=== PATIENT | male | born 1950 | race Caucasian/White ===

== ENCOUNTER 2019-12-01 20:08 | Inpatient (IN) | payer BC, OTHER ==
[~2019-12-01] VITALS: Ht 170.2 cm; Wt 83.0 kg
[2019-12-01] MEDS ORDERED: IPRATROPIUM 0.5MG/ALBUTEROL 2.5MG INH SOL UD 3ML (DUONEB)(J7620) NEB PRN ×2 (20:45→22:45)
[2019-12-01 21:26] LABS: VENOUS BASE EXCESS -2.5 (-2.0-2.0); VENOUS O2 SATURATION 88.3 % (60.0-80.0); VENOUS PARTIAL PRESSURE CO2 37.1 mmHg (38.0-50.0); VENOUS PARTIAL PRESSURE O2 53.4 mmHg (30.0-50.0); VENOUS STANDARD HCO3 22.2 MEQ/L; VENOUS TOTAL CO2 23.1 MEQ/L (24.0-28.0)
[2019-12-01 21:28] LABS: BASO # 0.1 10^3/uL (0.0-0.2); BASO % 0.6 % (0.0-1.0); EOS # 0.1 10^3/uL (0.0-0.5); EOS % 0.7 % (0.0-3.0); HEMATOCRIT 46.1 % (42.0-52.0); HEMOGLOBIN 15.1 g/dl (13.5-17.5); LYMPH % 23.3 % (24.0-44.0); MEAN CORPUSCULAR HEMOGLOBIN 28.5 pg (27.0-33.0); MEAN CORPUSCULAR HGB CONC 32.8 g/dl (32.0-36.5); MONO # 0.5 10^3/uL (0.0-0.8); MONO % 5.3 % (0.0-5.0); NEUTROPHILS # 6.1 10^3/uL (1.5-8.5); NEUTROPHILS % 69.8 % (36.0-66.0); PLATELET COUNT, AUTOMATED 268 10^3/uL (150-450); WHITE BLOOD COUNT 8.7 10^3/uL (4.0-10.0)
[2019-12-01 21:53] LABS: ALBUMIN 4.1 GM/DL (3.2-5.2); ALT/SGPT 22 U/L (12-78); BILIRUBIN,DIRECT 0.3 MG/DL (0.0-0.2); BILIRUBIN,TOTAL 0.9 MG/DL (0.2-1.0); BLOOD UREA NITROGEN 12 MG/DL (7-18); CALCIUM LEVEL 8.7 MG/DL (8.8-10.2); CARBON DIOXIDE LEVEL 22 MEQ/L (21-32); CHLORIDE LEVEL 109 MEQ/L (98-107); CK-MB VALUE MASS < 1.0 NG/ML (<3.6); CPK CREATINE PHOSPHOKINASE 72 U/L (39-308); CREATININE FOR GFR 0.94 MG/DL (0.70-1.30); GLOMERULAR FILTRATION RATE > 60.0 (>42); GLUCOSE, FASTING 106 MG/DL (70-100); MB/CK RELATIVE INDEX 1.39 (< OR =4); NT-PRO BNP 2193 PG/ML (<125); POTASSIUM SERUM 3.5 MEQ/L (3.5-5.1); SODIUM LEVEL 142 MEQ/L (136-145); THYROID STIMULATING HORMONE 0.407 uIU/ML (0.358-3.740); TOTAL PROTEIN 7.2 GM/DL (6.4-8.2); TROPONIN I < 0.02 NG/ML (< 0.10)
[2019-12-01 21:55] LABS: INFLUENZA A AMPLIFICATION NEGATIVE (NEGATIVE); INFLUENZA B AMPLIFICATION NEGATIVE (NEGATIVE)
[2019-12-01] MEDS ORDERED: FUROSEMIDE 40 MG/4 ML VIAL (J1940) IV ONE (22:30)
[2019-12-01] MEDS ORDERED: ADV250INH INH (22:37)
[2019-12-01] MEDS ORDERED: METO1TAB7 PO (22:37)
[2019-12-01] MEDS ORDERED: TUMSCHW16 PO (22:37)
[2019-12-01] MEDS ORDERED: PROAAER10 INH (22:37)
[2019-12-01] MEDS ORDERED: MUCI1CAP PO (22:37)
[2019-12-01] MEDS ORDERED: ATOR1TAB21 PO (22:37)
[2019-12-01] MEDS ORDERED: LISI40TA PO (22:37)
[2019-12-01] MEDS ORDERED: SPIR12.9 INH (22:37)
[2019-12-01] MEDS ORDERED: DALI1TAB2 PO (22:37)
[2019-12-01] MEDS ORDERED: [UNRECOGNIZED DRUG - CODE] MT (22:38)
[2019-12-01] MEDS ORDERED: TIZA4TAB4 PO (22:38)
[2019-12-01] MEDS ORDERED: MOM 30ML SUSPENSION UDC PO PRN (22:45)
[2019-12-01] MEDS ORDERED: ACETAMINOPHEN TAB 650MG DOSE (2X325MG) PO PRN (22:45)
[2019-12-01] MEDS ORDERED: MAALOX 30 ML SUSP *UDC PO PRN (22:45)
--- NOTE | 2019-12-01 22:46 | HPEPDOC ---
[facility] Medical History & Physical Date of Admission Dec 01, 2019 Date of Service: Dec 01, 2019 Other Provider Mike Dsouza DO History and Physical TIME OF SERVICE: 11:15 PM CHIEF COMPLAINT:Shortness of breath HISTORY OF PRESENT ILLNESS: This is a 69-year-old male who presents with complaints of shortness of breath that began last night associated with a cough productive of green sputum, runny nose, fevers, chills, and nausea without vomiting. His daughter and son-in-law were recently diagnosed with pneumonia. EMS initially put him on 15 L prior nonrebreather mask, and gave him 1 neb because he was wheezing, and dexamethasone. When he arrived in the ER, his O2 sats improved to 98% on room air. Because of findings of congestion on the chest x-ray and elevated BNP, he was given 1 dose of Lasix. EKG showed new onset A. fib REVIEW OF SYSTEMS: 12 point review of systems negative except as listed in HPI PAST MEDICAL/ SURGICAL HISTORY: COPD CAD Chronic Hypertension He denies having a history of CVA or diabetes or PVD SOCIAL HISTORY: He quit smoking ALLERGIES: Please see below. HOME MEDICATIONS: Please see below. PHYSICAL EXAMINATION: VITAL SIGNS: Please see below. GEN: well nourished / well developed/ NAD HEENT:NCAT / lips are not cyanotic / he does not have pursed lip breathing / trachea midline / maximal laryngeal height is <4cm / mucus membranes moist and pink CVS: Heart rate is irregularly irregular / he does not have lower extremity edema LUNGS: He is to speak full sentences without stopping to take a breath /he is not accessory muscles /there are decreased breath sounds bilaterally ABDOMEN: there are no masses or lesions / bowel sounds are present / the abdomen is tympanic on percussion, soft & not tender with palpation NEURO: CN 2-12 are grossly intact / speech is not dysarthric PSYCH: alert and oriented to person place and time/ able to understand and follow all commands LABORATORY DATA: See below. IMAGING: Chest x-ray " Impression: Cannot exclude very subtle early peribronchial infiltrates." MICROBIOLOGY: Please see below. ASSESSMENT: Mr. Martinez is a 69-year-old with a past history of COPD, HTN and CAD, that is admitted for management of new onset atrial fibrillation and acute COPD. PLAN: 1. New onset atrial fibrillation Predisposing factors include COPD. His EKG showed A. fib w RVR History of pulmonary, TSH, potassium, and d-dimer were unrevealing but the BNP was elevated Based on the current info we have his CHADSVASC score is approx 3 Plan: admit to PCU / telemetry /since we are not sure about his EF, we will give 1 dose of digoxin for rate control / pending Echo and to r/o valvulopathy will give Lovenox 1 mg/kg twice a day for AC / f/u mag and trend trops / the patient is requesting referral to stock replenisher in [facility] because he doesn't want to drive 1 hour to see his stock replenisher in [place], this can be done on an out pt basis 2. Acute COPD Likely triggered by viral infection versus early pneumonia His chest x-ray and ABG were reviewed Plan: supplemental O2 / continuous pulse oximetry / aspiration precautions / Dunebs Q6H, levalbuterol Q4HP, Prednisone + PPI / will give Levofloxacin because the patient has a change in sputum color / continue roflumilast / refer to [facility] for PFTs and Pulmonary Rehab when ready for d/c 3. SIRS Likely reactive due to viral infection. SIRS criteria include tachycardia and tachypnea He does not look toxic, and does not have a fever, leukocytosis therefore it's unlikely that he really has sepsis Despite the fact that daughter and son-in-law have pneumonia, and the chest x- ray report states that the cannot rule out early infiltrates. Plan: Monitor vitals / he is on levofloxacin for acute COPD with a change in sputum color 4. CAD Plan: Atorvastatin 4. Chronic hypertension Plan: lisinopril DVT PROPHYLAXIS: Not needed because he is on anticoagulation for new-onset A. fib DISPOSITION: Likely home after more than 2 night's stay PFS consult has been placed for assistance obtaining a home RN and homemaker ( the patient reports that he has trouble remembering to take his medications) Vital Signs Vital Signs Date Time Temp Pulse Resp B/P (MAP) Pulse Ox O2 Delivery O2 Flow Rate FiO2 12/01/19 21:23 119 96 12/01/19 21:15 21 206/82 (123) 12/01/19 20:30 98.0 Room Air Laboratory Data Labs 24H Laboratory Tests 2 12/01/19 21:08: Immature Granulocyte % (Auto) 0.3, Neutrophils (%) (Auto) 69.8H, Lymphocytes (%) (Auto) 23.3L, Monocytes (%) (Auto) 5.3H, Eosinophils (%) (Auto) 0.7, Basophils (%) (Auto) 0.6, Neutrophils # (Auto) 6.1, Lymphocytes # (Auto) 2.0, Monocytes # (Auto) 0.5, Eosinophils # (Auto) 0.1, Basophils # (Auto) 0.1, Nucleated Red Blood Cells % (auto) 0.0, D-Dimer, Quantitative 451.13, Blood Gas Bicarbonate Standard 22.2, Venous Blood pH 7.390, Venous Blood Partial Pressure CO2 37.1L, Venous Blood Partial Pressure O2 53.4H, Venous Blood Total Carbon Dioxide 23.1L, Venous Blood HCO3 22.0L, Venous Blood Oxygen Saturation 88.3H, Venous Blood Base Excess -2.5L, Anion Gap 11, Glomerular Filtration Rate > 60.0, Calcium Level 8.7L, Total Bilirubin 0.9, Direct Bilirubin 0.3H, Aspartate Amino Transf (AST/SGOT) 11, Alanine Aminotransferase (ALT/SGPT) 22, Alkaline Phosphatase 132H, Total Creatine Kinase 72, Creatine Kinase MB < 1.0, Creatine Kinase MB Relative Index 1.39, Troponin I < 0.02, HM-Ywx-[id number]-Type Natriuretic Peptide 2193H, Total Protein 7.2, Albumin 4.1, Albumin/Globulin Ratio 1.32, Thyroid Stimulating Hormone (TSH) 0.407, Influenza Type A (RT-PCR) NEGATIVE, Influenza Type B (RT- PCR) NEGATIVE CBC/BMP Laboratory Tests 12/01/19 21:08 Microbiology Microbiology 12/01/19 Blood Culture, Received Pending 12/01/19 Blood Culture, Received Pending Home Medications Scheduled Atorvastatin Calcium (Atorvastatin Calcium) 20 Mg Tablet, 20 MG PO DAILY Lisinopril (Lisinopril) 40 Mg Tablet, 40 MG PO DAILY Metoprolol Succinate (Metoprolol Succinate) 50 Mg Tab.er.24h, 50 MG PO DAILY Roflumilast (Daliresp) 500 Mcg Tablet, 500 MCG PO DAILY Salmeterol/Fluticasone (Advair 250-50 Diskus) 1 Each Blst.w.dev, 1 PUFF INH BID Tiotropium [place] (Spiriva Respimat) 4 Gm Mist.inhal, 2 INHALATION INH DAILY Scheduled PRN Albuterol Sulfate (Proair Hfa) 8.5 Gm Hfa.aer.ad, 2 PUFF INH Q4H PRN for SH ORTNESS OF BREATH Calcium Carbonate (Tums Smoothies) 300 Mg Tab.chew, 750 MG PO Q4H PRN for UPSET STOMACH Dyclonine HCl (Sucrets Sore Throat) 2 Mg Lozenge, 2 MG MT ASDIRECTED PRN for SORE THROAT Phenylephrine/Dm/Acetaminop/GG (Mucinex Fast-Max Mrkx-Dmx-Zgvo) 1 Each Capsule, 2 CAP PO Q4H PRN for COLD/FLU/SORE THROAT Tizanidine HCl (Tizanidine HCl) 4 Mg Tablet, 4 MG PO TID PRN for MUSCLE SPASMS Allergies Coded Allergies: No Known Drug Allergies (Verified Allergy, Unknown, 12/01/19) A-FIB/CHADSVASC A-FIB History Current/History of A-Fib/PAF?: Yes Current PO Anticoag Therapy: No Age/Risk Factor Scoring CHADSVASC: CHADSVASC Response (Comments) Value Age Risk Factor Age 65-74 years old 1 Gender Risk Factor Male 0 Hx of CHF No 0 Hx of HTN Yes 1 Hx of Stroke/TIA/or VTE No 0 Hx of Diabetes No 0 Hx of Vascular Disease Yes 1 Total 3 Treatment Treatment ordered: Other (lovenox) Other anticoagulant ordered: FREDRICK Ulloa MD Dec 01, 2019 22:46
[2019-12-01] MEDS ORDERED: DIGOXIN INJ 0.5 MG/2 ML AMP (J1160) IV ONE (23:45)
[2019-12-01] MEDS ORDERED: PILL CUTTER 1 EACH XX PRN (23:45)
[2019-12-01] MEDS ORDERED: tiZANidine 4 MG TAB PO PRN (23:45)
[2019-12-01] MEDS ORDERED: CALCIUM CARBONATE 500 MG CHEW U/D PO PRN (23:45)
[2019-12-02 00:56] VITALS: BP 141/97
--- NOTE | 2019-12-02 01:52 | REP ---
Clinical: Cough and dyspnea . Comparison: None . Technique: PA and lateral. Findings: The mediastinum and cardiac silhouette are normal. Very subtle perihilar opacities may reflect early ground-glass alveolar infiltrates and should be correlated with auscultation and physical examination. No discrete focal consolidation. No effusion. No pneumothorax. Skeletal structures are intact. Impression: Cannot exclude very subtle early peribronchial infiltrates. Electronically Signed by Angel Inman MD 12/02/2019 01:43 A
[2019-12-02 02:28] LABS: TROPONIN I < 0.02 NG/ML (< 0.10)
[2019-12-02 03:39] LABS: MAGNESIUM LEVEL 1.8 MG/DL (1.8-2.4)
[2019-12-02 04:00] VITALS: BP 170/90
[2019-12-02] MEDS ORDERED: ENOXAPARIN 80 MG/0.8 ML SYRINGE (J1650) SC SCH (04:00)
[2019-12-02 05:37] LABS: HEMATOCRIT 44.8 % (42.0-52.0); HEMOGLOBIN 15.7 g/dl (13.5-17.5); MEAN CORPUSCULAR HEMOGLOBIN 29.6 pg (27.0-33.0); MEAN CORPUSCULAR VOLUME 84.4 fl (80.0-96.0); PLATELET COUNT, AUTOMATED 327 10^3/uL (150-450); RED BLOOD COUNT 5.31 10^6/uL (4.30-6.10); WHITE BLOOD COUNT 7.2 10^3/uL (4.0-10.0)
[2019-12-02 05:59] LABS: BLOOD UREA NITROGEN 14 MG/DL (7-18); CALCIUM LEVEL 9.1 MG/DL (8.8-10.2); CARBON DIOXIDE LEVEL 22 MEQ/L (21-32); CHLORIDE LEVEL 105 MEQ/L (98-107); CREATININE FOR GFR 1.11 MG/DL (0.70-1.30); GLOMERULAR FILTRATION RATE > 60.0 (>42); GLUCOSE, FASTING 167 MG/DL (70-100); POTASSIUM SERUM 3.4 MEQ/L (3.5-5.1); SODIUM LEVEL 139 MEQ/L (136-145); TROPONIN I < 0.02 NG/ML (< 0.10)
[2019-12-02] MEDS ORDERED: LevoFLOXacin 750 MG TABLET PO SCH (06:00)
[2019-12-02] MEDS ORDERED: METOPROLOL SUCC *XL* 25MG TAB (TopROL *XL*) PO ONE (07:00)
--- NOTE | 2019-12-02 07:30 | ECGEPIP ---
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
[2019-12-02 07:43] VITALS: BP 155/87
[2019-12-02] MEDS: ATORVASTATIN 20 MG TAB PO SCH (08:06)
[2019-12-02] MEDS: DOCUSATE SODIUM 100 MG CAP PO SCH ×2 (08:06→20:12)
[2019-12-02] MEDS: PANTOPRAZOLE 40MG TAB (PROTONIX) PO SCH (08:06)
[2019-12-02] MEDS: lisinopriL 40 MG TAB PO SCH (08:08)
[2019-12-02] MEDS ORDERED: POTASSIUM CHLORIDE 10 MEQ SR TABLET PO ONE (08:30)
[2019-12-02] MEDS ORDERED: FUROSEMIDE 20 MG TAB PO SCH (09:00)
[2019-12-02] MEDS: ASPIRIN 81 MG ENTERIC TAB PO SCH (09:00)
[2019-12-02] MEDS ORDERED: ENOXAPARIN 40 MG/0.4 ML SYRINGE (J1650) SC SCH (09:00)
[2019-12-02] MEDS ORDERED: METOPROLOL SUCC (TopROL XL) 50MG **XL** TAB PO SCH (09:00)
[2019-12-02] MEDS ORDERED: predniSONE 20 MG TAB PO SCH (09:00)
[2019-12-02] MEDS ORDERED: ALBUTEROL 90 MCG/ACT 8GM HFA INHALER INH PRN (09:15)
[2019-12-02] MEDS: cefTRIAXone SOD 2 GM in D5W MINI-BAG PLUS 50 ML IV SCH (10:45)
[2019-12-02] MEDS: NS 1,000 ML IV SCH ×3 (10:45→22:53)
[2019-12-02] MEDS ORDERED: AZITHROMYCIN INJ 500 MG, VIAL MATE ADAPTER 1 EACH in D5W 250 ML IV SCH (11:00)
[2019-12-02] MEDS: IPRATROPIUM 0.5MG/ALBUTEROL 2.5MG INH SOL UD 3ML (DUONEB)(J7620) INH SCH ×4 (11:05→23:45)
--- NOTE | 2019-12-02 11:41 | IPNPDOC ---
Text Note Date of Service The patient was seen on 12/02/19. NOTE Subjective: Patient stated that he has a weakness, cough and greenish sputum. Also patient stated that he had chills overnight. Patient denied any chest pain, palpitations, dysuria or diarrhea Objective: VITAL SIGNS: Please see below. GENERAL APPEARANCE:NAD HEENT: Normocephalic, atraumatic. Mucous members moist and pink CARDIOVASCULAR: Irregularly irregular rhythm, heart rate around 126 LUNGS: Bilateral wheezes with coarse lung sounds over sternal area ABDOMEN: Abdomen is soft and nontender. MUSCULOSKELETAL: Range of motion is intact in all 4 extremities NEUROLOGICAL: Cranial nerves II-12 are grossly intact. Speech is not dysarthric Patient 69 years old male with past mental history of COPD, hypertension, coronary artery diseases presented hospital with increased shortness of breath and new onset of atrial fibrillation COPD exacerbation Patient was around sick people, his daughter was diagnosed with pneumonia Patient has been having increased cough with greenish sputum production for past 3 days Patient does not have leukocytosis, chest x-ray does not reveal any acute infiltrate Azithromycin IV, ceftriaxone IV Sputum culture Incentive spirometry Solu-Medrol IV for now Inhalers Respiratory panel New-onset of atrial fibrillation Patient has not been diagnosed with A. fib before Most likely secondary to respiratory distress secondary to COPD exacerbation Patient looks dry on the exam, flat JVD Most likely increased BNP secondary to atrial fibrillation, not CHF exacerbation I will give IV fluid patient and stop diuresis Coronary artery diseases Patient was not on the aspirin for unknown reason Aspirin 81 Continue statin Continue beta maxi Hypertension Continue lisinopril Electrolyte imbalance Potassium replaced VS,Fishbone, I+O VS, Fishbone, I+O Laboratory Tests 12/01/19 21:08 12/02/19 05:08 Vital Signs Date Time Temp Pulse Resp B/P (MAP) Pulse Ox O2 Delivery O2 Flow Rate FiO2 12/02/19 08:08 128 155/87 12/02/19 07:43 98.2 20 98 12/02/19 04:00 Room Air I&O- Last 24 Hours up to 6 AM 12/02/19 05:59 Intake Total 0 ml Output Total 300 ml Balance -300 ml TERESE PEARSON DO Dec 02, 2019 11:41
[2019-12-02] MEDS: methylPREDNISolone INJ 125 MG/2 ML VIAL (J2930) IV SCH ×2 (11:47→20:12)
[2019-12-02 12:00] VITALS: BP 147/94
[2019-12-02] MEDS: METOPROLOL 5 MG/5 ML VIAL IV PRN ×2 (13:34→16:17)
[2019-12-02 16:00] VITALS: BP 133/56
[2019-12-02] MEDS: RIVAROXABAN 15 MG TAB (XARELTO) PO SCH (17:50)
[2019-12-02 20:00] VITALS: BP 115/72
--- NOTE | 2019-12-02 21:22 | ECHO ---
DATE OF PROCEDURE: 12/02/2019 Date of : 1950 Age: 69 Gender: Male Height: 67 inches Weight: 176 pounds Body surface area: 1.92 meters squared Inpatient: Progressive care unit (PCU), room 3220. REFERRING PHYSICIAN: Dr. Tory Waddell INDICATION: Dyspnea. MEASUREMENTS: 2D Measurements: RV: 4.1 cm LV: 5.5 cm Septum: 1.2 cm Posterior wall: 1.2 cm Aortic root: 3.8 cm LA: 4.0 cm LVEF: 65% Doppler Measurements: AV: 1.1 meters per second LVOT: 0.8 meters per second LVOT diameter: 2.3 cm MV-E: 69 Early mitral deceleration time: 134 milliseconds E prime medial: 6, E prime lateral: 7.3 Average E/E prime ratio: 10.4/PCWP: 14.8 mmHg PV: 0.75 meters per second Pulmonary artery acceleration time: 100 milliseconds RVSP: 37 mmHg IVC: 1.7 cm COMMENTS: Underlying atrial fibrillation with slightly rapid ventricular response. Occasional premature ventricular contraction (PVC). Somewhat technically challenging study in light of the patient's body habitus but diagnostically useful information was still obtained. M-mode and two-dimensional echocardiography was performed with pulsed, continuous wave, color flow and tissue Doppler studies. Borderline left ventricle hypertrophy with normal wall motion. Borderline left atrial enlargement with current estimated mean left atrial pressure slightly elevated. Borderline right heart chamber enlargement with normal right ventricular free wall motion and Doppler evidence of mild pulmonary hypertension. Normal inferior vena cava (IVC) size and collapse against an elevated central venous pressure. Three equal size aortic cusps with marginal cusp thickening but adequate cusp separation and no insufficiency. Aortic root dimension upper limits of normal. Normal appearing mitral valvular apparatus and leaflet excursion with no posterior systolic buckling. Only very mild insufficiency (physiologic). Normal appearing tricuspid valve with mild insufficiency. No apparent intracardiac mass or pericardial effusion. MTDD
[2019-12-03] VITALS (7 sets, daily range): BP systolic 121–160; BP diastolic 60–78
[2019-12-03] MEDS: methylPREDNISolone INJ 125 MG/2 ML VIAL (J2930) IV SCH (03:57)
[2019-12-03] MEDS: IPRATROPIUM 0.5MG/ALBUTEROL 2.5MG INH SOL UD 3ML (DUONEB)(J7620) INH SCH ×5 (04:15→19:45)
[2019-12-03 05:42] LABS: HEMATOCRIT 43.9 % (42.0-52.0); HEMOGLOBIN 14.4 g/dl (13.5-17.5); MEAN CORPUSCULAR HEMOGLOBIN 28.9 pg (27.0-33.0); MEAN CORPUSCULAR HGB CONC 32.8 g/dl (32.0-36.5); MEAN CORPUSCULAR VOLUME 88.2 fl (80.0-96.0); PLATELET COUNT, AUTOMATED 315 10^3/uL (150-450); RED BLOOD COUNT 4.98 10^6/uL (4.30-6.10); WHITE BLOOD COUNT 16.7 10^3/uL (4.0-10.0)
[2019-12-03 06:03] LABS: CALCIUM LEVEL 8.9 MG/DL (8.8-10.2); CREATININE FOR GFR 1.41 MG/DL (0.70-1.30); GLOMERULAR FILTRATION RATE 52.9 (>42); POTASSIUM SERUM 3.5 MEQ/L (3.5-5.1)
[2019-12-03] MEDS ORDERED: POTASSIUM CHLORIDE 10 MEQ SR TABLET PO ONE (09:00)
[2019-12-03] MEDS ORDERED: METOPROLOL SUCC *XL* 25MG TAB (TopROL *XL*) PO SCH (09:00)
[2019-12-03] MEDS: DOCUSATE SODIUM 100 MG CAP PO SCH ×2 (09:33→20:17)
[2019-12-03] MEDS: METOPROLOL SUCC (TopROL XL) 100MG *XL* TAB PO SCH (09:34)
[2019-12-03] MEDS: lisinopriL 40 MG TAB PO SCH (09:34)
[2019-12-03] MEDS: ATORVASTATIN 20 MG TAB PO SCH (09:34)
[2019-12-03] MEDS: ASPIRIN 81 MG ENTERIC TAB PO SCH (09:34)
[2019-12-03] MEDS: PANTOPRAZOLE 40MG TAB (PROTONIX) PO SCH (09:34)
[2019-12-03] MEDS: cefTRIAXone SOD 2 GM in D5W MINI-BAG PLUS 50 ML IV SCH (09:35)
--- NOTE | 2019-12-03 10:20 | IPNPDOC ---
Text Note Date of Service The patient was seen on 12/03/19. NOTE Subjective: Patient stated that he feels better today. His breathing markedly improved after inhalers. Also patient stated that he had chills overnight. Patient denied any chest pain, palpitations, dysuria or diarrhea Objective: VITAL SIGNS: Please see below. GENERAL APPEARANCE:NAD HEENT: Normocephalic, atraumatic. Mucous members moist and pink CARDIOVASCULAR: Irregularly irregular rhythm, heart rate around 110 LUNGS: Mild bilateral scattered lung sounds ABDOMEN: Abdomen is soft and nontender. MUSCULOSKELETAL: Range of motion is intact in all 4 extremities NEUROLOGICAL: Cranial nerves II-12 are grossly intact. Speech is not dysarthric MEASUREMENTS: 2D Measurements: RV: 4.1 cm LV: 5.5 cm Septum: 1.2 cm Posterior wall: 1.2 cm Aortic root: 3.8 cm LA: 4.0 cm LVEF: 65% Doppler Measurements: AV: 1.1 meters per second LVOT: 0.8 meters per second LVOT diameter: 2.3 cm MV-E: 69 Early mitral deceleration time: 134 milliseconds E prime medial: 6, E prime lateral: 7.3 Average E/E prime ratio: 10.4/PCWP: 14.8 mmHg PV: 0.75 meters per second Pulmonary artery acceleration time: 100 milliseconds RVSP: 37 mmHg IVC: 1.7 cm COMMENTS: Underlying atrial fibrillation with slightly rapid ventricular response. Occasional premature ventricular contraction (PVC). Somewhat technically challenging study in light of the patient's body habitus but diagnostically useful information was still obtained. M-mode and two-dimensional echocardiography was performed with pulsed, continuous wave, color flow and tissue Doppler studies. Borderline left ventricle hypertrophy with normal wall motion. Borderline left atrial enlargement with current estimated mean left atrial pressure slightly elevated. Borderline right heart chamber enlargement with normal right ventricular free wall motion and Doppler evidence of mild pulmonary hypertension. Normal inferior vena cava (IVC) size and collapse against an elevated central venous pressure. Three equal size aortic cusps with marginal cusp thickening but adequate cusp separation and no insufficiency. Aortic root dimension upper limits of normal. Normal appearing mitral valvular apparatus and leaflet excursion with no posterior systolic buckling. Only very mild insufficiency (physiologic). Normal appearing tricuspid valve with mild insufficiency. No apparent intracardiac mass or pericardial effusion. Patient 69 years old male with past mental history of COPD, hypertension, coronary artery diseases presented hospital with increased shortness of breath and new onset of atrial fibrillation. Patient was diagnosed with COPD exacerbation secondary to viral infection. Patient was tested positive for rhinovirus/enteroviral infection, there is possibility for bacterial co- infection. Patient received treatment with inhalers, steroids by mouth, antibiotics. COPD exacerbation Patient was around sick people, his daughter was diagnosed with pneumonia Patient has been having increased cough with greenish sputum production for past 3 days chest x-ray does not reveal any acute infiltrate Patient was tested positive for rhinovirus/enteroviral infection Most likely patient developed COPD exacerbation secondary to viral infection, there is possibility for bacterial co- infection I changed IV antibiotics to Levofloxacin by mouth Incentive spirometry I changed Solu-Medrol IV to prednisone with taper Inhalers New-onset of atrial fibrillation Patient has not been diagnosed with A. fib before Most likely secondary to respiratory distress secondary to COPD exacerbation Patient looks dry on the exam, flat JVD Most likely increased BNP secondary to atrial fibrillation, not CHF exacerbation Echo showed ejection fraction of 65% with normal wall motion Coronary artery diseases Patient was not on the aspirin for unknown reason Aspirin 81 Continue statin Continue beta maxi Hypertension Continue lisinopril Electrolyte imbalance Potassium replaced VS,Fishbone, I+O VS, Fishbone, I+O Laboratory Tests 12/03/19 05:05 Vital Signs Date Time Temp Pulse Resp B/P (MAP) Pulse Ox O2 Delivery O2 Flow Rate FiO2 12/03/19 09:34 122 144/63 12/03/19 08:05 98.4 20 97 Room Air I&O- Last 24 Hours up to 6 AM 12/03/19 06:00 Intake Total 1280 ml Output Total 1725 ml Balance -445 ml TERESE PEARSON DO Dec 03, 2019 10:20
[2019-12-03] MEDS: METOPROLOL 5 MG/5 ML VIAL IV PRN (10:24)
[2019-12-03] MEDS ORDERED: LORazepam 1 MG TAB PO STA (10:32)
[2019-12-03] MEDS: LevoFLOXacin 500 MG TABLET PO SCH (10:38)
[2019-12-03] MEDS: predniSONE 20 MG TAB PO SCH (10:39)
[2019-12-03] MEDS ORDERED: SLF 3 ML SYR IV PRN (11:30)
--- NOTE | 2019-12-03 13:38 | IPN ---
DATE: 12/03/2019 REFERRING PHYSICIAN: Dr. Baez INDICATION: Atrial fibrillation with rapid ventricular response. HISTORY OF PRESENT ILLNESS: Mr. Martinez is previously unknown to me. He is a 69-year-old man who presented to [facility] yesterday with shortness of breath. It was felt that it was due to respiratory infection, and he has been treated with steroids and antibiotics and bronchodilators. He was also found to be in atrial fibrillation with rapid ventricular response. He, at baseline, takes 50 mg of Toprol XL and the dose was increased to 100 mg a day, but in spite of it he continues to be quite tachycardiac and Dr. Baez asked me for assistance. At bedside, the patient tells me that he is feeling much better today that he did yesterday. He does feel the sensation of palpitations associated with atrial fibrillation, but he cannot pinpoint when it started. He does not believe that there is any history of atrial fibrillation as such from past. When asked about coronary artery disease, the patient claims that he was told that he had a heart attack in the past. He apparently was investigated in [facility] in [place] and underwent cardiac catheterization. It was in March 2019 and according to a his understanding he did not have any blocked arteries and did not have any interventions. At his baseline, he is quite sedentary as of last few years, limited by dyspnea. He cannot climb one flight of stairs comfortably, even on a good day. He does not have any paroxysmal nocturnal dyspnea, orthopnea, peripheral edema. There is no history of syncope. PAST MEDICAL HISTORY 1. Chronic obstructive pulmonary disease (COPD), he is not sure about the severity. 2. Questionable history of coronary artery disease. 3. Hypertension. 4. Dyslipidemia. SOCIAL HISTORY: The patient used to smoke quite heavily but quit approximately 7 years ago. He is and lives currently with his daughter. 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 He has not been drinking excessive alcohol, at least not in the last few months. OUTPATIENT MEDICATIONS: - albuterol inhaler - Lipitor 20 mg a day - Tums as needed - lisinopril 40 mg a day - Toprol XL 25 mg a day - Daliresp 500 mg a day - Advair inhaler - Spiriva inhaler - tizanidine as needed for muscle spasms FAMILY HISTORY: Positive for coronary artery disease. REVIEW OF SYSTEMS: He denies any recent chest discomfort, even though he feels that there is occasionally mild burning sensation in his chest that he ascribes to heartburn. There is no paroxysmal nocturnal dyspnea. No orthopnea. He has gotten sick about 2 weeks ago with cough, expectoration of sputum that is on occasion yellowish, fever and chills. No syncope and no abdominal pain or bloating. No diarrhea, nausea, vomiting. No peripheral edema. PHYSICAL EXAMINATION: Mr. Martinez is a 69-year-old man who appears actually younger than his age and appears to have a good muscle mass with athletic posture. He has a long neff so evaluation of his neck is somewhat challenging. Vital signs: Blood pressure 120/55, heart rate from 100-160, afebrile currently. Saturation 97% on room air and weight is recorded at 83 kg. Jugular venous pressure is difficult to real estate sales agent but is not elevated by my exam. Lungs are reasonably clear. Occasional crackle and wheeze but good air movement. Heart exam reveals irregular tachycardia. I do not appreciate any gallop or rub or murmur. Abdomen is soft. No tenderness. No guarding. No hepatosplenomegaly. Extremities are free of edema. Peripheral pulses are palpable in both lower extremities. Neurologically, he is intact. LABORATORY: Basic metabolic panel: Sodium 139, potassium 3.5, BUN 23, creatinine 1.4 for GFR 53, glucose 214 and calcium 8.7. CBC reveals hemoglobin 14.4, hematocrit 43, platelet count 350,000. On admission, his WBC count was 8.7 and today 16.7, almost certainly is a consequence of steroid administration. He tested negative for influenza A and B, but then the PCR screen came positive for two respiratory viruses. Chest x-ray showed no cardiomegaly. No obvious infiltrate. No pleural effusions and no convincing congestive heart failure (CHF). ECG reveals atrial fibrillation with mildly tachycardiac rate, left anterior fascicular hemiblock and occasional PVCs and no definite ischemic abnormalities. Echocardiogram interpreted by Dr. Pina reveals preserved left ventricular systolic function with no hemodynamically significant valvular disease and with mild pulmonary hypertension. During my dictation I am being handed records that we just received from [facility]. He had a heart catheterization in September 2016 that revealed occluded nondominant right coronary artery and diffuse disease that was nonobstructive in left coronary system and preserved systolic function. He was seen in [place] again in 2018, but it looks like at that time no additional testing was performed. ASSESSMENT/PLAN: Mr. Martinez is a 69-year-old man who does have coronary artery disease with known occluded nondominant right coronary artery and medical disease in left-sided arteries based on records from 2016. He comes with respiratory infection, most likely viral in nature that is complicated by onset of atrial fibrillation. 1.As far as the management of atrial fibrillation is concerned, I am going to add Cardizem to his current metoprolol and hopefully as the control of the infection will progress, his heart rate will slow down, and I am also modestly optimistic that he will ultimately convert to sinus rhythm spontaneously. If he does not, then we will have to perform some additional evaluation, probably on outpatient basis and decide whether he will keep him in atrial fibrillation or we will attempt to restore sinus rhythm. 2. Coronary artery disease based on cardiac catheterization from 2016. He has occluded small nondominant right coronary artery and diffuse disease in left-sided arteries. He denies any anginal symptoms at his baseline and he quit smoking several years ago and has been taking lipid lowering medications I discontinued the aspirin originally but now when we know that he has coronary artery disease, I am going to restart him on 81 mg a day. Together with anticoagulation for atrial fibrillation and administration of steroids he will have high risk of peptic ulcer disease, but we will provide protection with proton pump inhibitor. I am hoping that with these measures his condition will improve rapidly. JOAO
[2019-12-03] MEDS: SLF 3 ML SYR IV SCH ×2 (14:12→20:17)
--- NOTE | 2019-12-03 14:25 | ECGEPIP ---
[facility] Test Date: 2019-12-03 Pat Name: DAVID DEUTSCH Department: Room: [place] [address] Gender: Male Classroom Paraprofessional: KYLAH : 1950 Requested By: TERESE PEARSON Order Number: [id number] Reading MD: Giuseppe Stoddard Measurements Intervals [place] Rate: 119 P: [place]: 0 QRS: -65 QRSD: 111 T: 98 QT: 323 QTc: 455 Interpretive Statements ATRIAL FIBRILLATION WITH RAPID VENTRICULAR RESPONSE WITH ABERRANT CONDUCTION OR VENTRICULAR PREMATURE COMPLEXES LEFT ANTERIOR FASCICULAR BLOCK POSSIBLE ANTERIOR MYOCARDIAL INFARCTION, PROBABLY OLD SINCE 12/12/2019 THERE ARE MORE FREQUENT PVC'S, OTHERWISE MINIMAL CHANGE Electronically Signed on 12-03-2019 14:25:03 EST by Giuseppe Stoddard
[2019-12-03] MEDS: RIVAROXABAN 15 MG TAB (XARELTO) PO SCH (17:08)
[2019-12-04] VITALS (7 sets, daily range): BP systolic 127–160; BP diastolic 60–79
[2019-12-04] MEDS: IPRATROPIUM 0.5MG/ALBUTEROL 2.5MG INH SOL UD 3ML (DUONEB)(J7620) INH SCH ×4 (02:03→19:31)
[2019-12-04 02:18] LABS: BLOOD UREA NITROGEN 25 MG/DL (7-18); CALCIUM LEVEL 8.8 MG/DL (8.8-10.2); CARBON DIOXIDE LEVEL 24 MEQ/L (21-32); CHLORIDE LEVEL 108 MEQ/L (98-107); CREATININE FOR GFR 1.16 MG/DL (0.70-1.30); GLOMERULAR FILTRATION RATE > 60.0 (>42); GLUCOSE, FASTING 134 MG/DL (70-100); MAGNESIUM LEVEL 1.8 MG/DL (1.8-2.4); PHOSPHORUS LEVEL 2.8 MG/DL (2.5-4.9); POTASSIUM SERUM 4.5 MEQ/L (3.5-5.1); SODIUM LEVEL 140 MEQ/L (136-145)
[2019-12-04 05:26] LABS: HEMATOCRIT 42.8 % (42.0-52.0); HEMOGLOBIN 13.8 g/dl (13.5-17.5); MEAN CORPUSCULAR HEMOGLOBIN 28.8 pg (27.0-33.0); MEAN CORPUSCULAR HGB CONC 32.2 g/dl (32.0-36.5); MEAN CORPUSCULAR VOLUME 89.4 fl (80.0-96.0); PLATELET COUNT, AUTOMATED 284 10^3/uL (150-450); RED BLOOD COUNT 4.79 10^6/uL (4.30-6.10); WHITE BLOOD COUNT 17.9 10^3/uL (4.0-10.0)
[2019-12-04] MEDS: LevoFLOXacin 500 MG TABLET PO SCH (05:39)
[2019-12-04] MEDS: SLF 3 ML SYR IV SCH ×3 (05:41→21:00)
[2019-12-04 05:48] LABS: BLOOD UREA NITROGEN 22 MG/DL (7-18); CALCIUM LEVEL 8.3 MG/DL (8.8-10.2); CARBON DIOXIDE LEVEL 22 MEQ/L (21-32); CHLORIDE LEVEL 107 MEQ/L (98-107); CREATININE FOR GFR 1.13 MG/DL (0.70-1.30); GLOMERULAR FILTRATION RATE > 60.0 (>42); GLUCOSE, FASTING 171 MG/DL (70-100); MAGNESIUM LEVEL 2.1 MG/DL (1.8-2.4); POTASSIUM SERUM 3.9 MEQ/L (3.5-5.1); SODIUM LEVEL 139 MEQ/L (136-145)
[2019-12-04] MEDS: DOCUSATE SODIUM 100 MG CAP PO SCH ×2 (09:00→20:36)
[2019-12-04] MEDS: METOPROLOL SUCC (TopROL XL) 100MG *XL* TAB PO SCH (09:28)
[2019-12-04] MEDS: predniSONE 20 MG TAB PO SCH (09:28)
[2019-12-04] MEDS: PANTOPRAZOLE 40MG TAB (PROTONIX) PO SCH (09:28)
[2019-12-04] MEDS: ASPIRIN 81 MG ENTERIC TAB PO SCH (09:28)
[2019-12-04] MEDS: lisinopriL 40 MG TAB PO SCH (09:28)
[2019-12-04] MEDS: ATORVASTATIN 20 MG TAB PO SCH (09:28)
--- NOTE | 2019-12-04 12:27 | IPN ---
DATE: 12/04/2019 Mr. Martinez tells me that he is feeling better. He feels that his dyspnea has improved markedly. Denies any chest discomfort or sensation of palpitations. PHYSICAL EXAMINATION: Blood pressure 128/72 and has been similar throughout the day and night. Heart rate is in 80s to 90s. He is afebrile. Fluid balance yesterday was recorded about 500 positive. Weight is 83.7 kg. He is alert and oriented appropriate. Lungs are clear with occasional expiratory wheeze but no rhonchi. No crackles. Heart exam reveals irregular rhythm. I do not appreciate any gallop or rub. Abdomen is soft, nontender. There is no peripheral edema. Jugular venous pressure does not look elevated and neurologically he is intact. LABORATORY CBC is normal but for WBC count 17.9. Basic metabolic panel is also normal. Creatinine is 1.3 with calculated GFR over 60. ASSESSMENT/PLAN: Mr. Martinez is a 69-year-old man who has established coronary artery disease with known occluded right coronary artery based on angiography 3 years ago but no history of congestive heart failure or prior atrial fibrillation. He came with upper respiratory infection complicated by atrial fibrillation with rapid ventricular response. Currently the rate seems to be well-controlled on current medications. I am going to advance the dose of Xarelto to a full 20 mg because his GFR is now over 60. Otherwise, I will not make any medication changes. I believe that he probably can be discharged within a day or two. Depending how much Cardizem he will get over the next 24 hours will decide how high should be his outpatient dose in slow release form. I do plan to consider cardioversion if he does not convert spontaneously to sinus rhythm after he recovers from his respiratory infection.
--- NOTE | 2019-12-04 12:49 | IPNPDOC ---
Text Note Date of Service The patient was seen on 12/04/19. NOTE Subjective: Patient stated that he feels better today. No any acute events ov ernight. Heart rate markedly improved Also patient stated that he had chills overnight. Patient denied any chest pain, palpitations, dysuria or diarrhea Objective: VITAL SIGNS: Please see below. GENERAL APPEARANCE:NAD HEENT: Normocephalic, atraumatic. Mucous members moist and pink CARDIOVASCULAR: Irregularly irregular rhythm, heart rate around 110 LUNGS: Mild bilateral scattered lung sounds ABDOMEN: Abdomen is soft and nontender. MUSCULOSKELETAL: Range of motion is intact in all 4 extremities NEUROLOGICAL: Cranial nerves II-12 are grossly intact. Speech is not dysarthric Patient 69 years old male with past mental history of COPD, hypertension, coronary artery diseases presented hospital with increased shortness of breath and new onset of atrial fibrillation. Patient was diagnosed with COPD exacerbation secondary to viral infection. Patient was tested positive for rhinovirus/enteroviral infection, there is possibility for bacterial co- infection. Patient received treatment with inhalers, steroids by mouth, antibiotics. Also patient developed new onset of atrial fibrillation. COPD exacerbation Patient was around sick people, his daughter was diagnosed with pneumonia Patient has been having increased cough with greenish sputum production for past 3 days chest x-ray does not reveal any acute infiltrate Patient was tested positive for rhinovirus/enteroviral infection Most likely patient developed COPD exacerbation secondary to viral infection, there is possibility for bacterial co- infection I changed IV antibiotics to Levofloxacin by mouth Incentive spirometry I changed Solu-Medrol IV to prednisone with taper Inhalers New-onset of atrial fibrillation Rate controlled Patient has not been diagnosed with A. fib before Most likely secondary to respiratory distress secondary to COPD exacerbation Patient looks dry on the exam, flat JVD Most likely increased BNP secondary to atrial fibrillation, not CHF exacerbation Echo showed ejection fraction of 65% with normal wall motion Coronary artery diseases Patient was not on the aspirin for unknown reason Aspirin 81 Continue statin Continue beta maxi PPI Hypertension Continue lisinopril Electrolyte imbalance Replaced as needed VS,Felipee, I+O VS, [place]ipee, I+O Laboratory Tests 12/04/19 01:42 12/04/19 04:59 Vital Signs Date Time Temp Pulse Resp B/P (MAP) Pulse Ox O2 Delivery O2 Flow Rate FiO2 12/04/19 12:16 103 160/74 12/04/19 08:00 98.0 18 96 Room Air I&O- Last 24 Hours up to 6 AM 12/04/19 06:00 Intake Total 1110 ml Output Total 600 ml Balance 510 ml TERESE PEARSON DO Dec 04, 2019 12:49
[2019-12-04] MEDS ORDERED: RIVAROXABAN 20 MG TAB (XARELTO) PO SCH (18:00)
[2019-12-05] VITALS: BP 133/79
[2019-12-05] MEDS: IPRATROPIUM 0.5MG/ALBUTEROL 2.5MG INH SOL UD 3ML (DUONEB)(J7620) INH SCH ×3 (01:11→11:22)
[2019-12-05 04:00] VITALS: BP 121/79
[2019-12-05] MEDS: LevoFLOXacin 500 MG TABLET PO SCH (05:07)
[2019-12-05] MEDS: SLF 3 ML SYR IV SCH (05:07)
[2019-12-05 06:01] LABS: BLOOD UREA NITROGEN 22 MG/DL (7-18); CALCIUM LEVEL 8.3 MG/DL (8.8-10.2); CARBON DIOXIDE LEVEL 23 MEQ/L (21-32); CHLORIDE LEVEL 108 MEQ/L (98-107); CREATININE FOR GFR 0.98 MG/DL (0.70-1.30); GLOMERULAR FILTRATION RATE > 60.0 (>42); GLUCOSE, FASTING 122 MG/DL (70-100); MAGNESIUM LEVEL 2.2 MG/DL (1.8-2.4); POTASSIUM SERUM 3.6 MEQ/L (3.5-5.1); SODIUM LEVEL 140 MEQ/L (136-145)
--- NOTE | 2019-12-05 07:34 | IPN ---
DATE: 12/05/2019 Mr. Martinez is feeling better. He tells me that he slept well and his dyspnea is probably not too far from his baseline. He does not have any palpitations or chest discomfort. He remains in atrial fibrillation with much better rate control. Blood pressure 121/79, heart rate 81, afebrile, saturation 99% on room air, weight 83 kg. Alert, oriented and appropriate. Jugular venous pulse (JVP) is not high. Lungs are reasonably clear. I do not appreciate any wheezing today. No rhonchi or crackles. Heart Exam: Irregular rhythm without obvious gallop. Abdomen is soft and nontender. Extremities are free of edema with good peripheral pulses. Laboratories: Basic metabolic panel is normal but for glucose of 122. CBC was not drawn today. ASSESSMENT: Mr. Martinez is a 69-year-old man who has presented with upper respiratory infection and was found to be in atrial fibrillation with rapid ventricular response (RVR). With adjustment of medication, the rate is now well controlled and he was started on Xarelto for anticoagulation. He does have underlying coronary artery disease, but has had no anginal symptoms or evidence for ischemia. From my perspective, he can be discharged home. I plan to see him in followup next week in the office. If it is felt that he needs to be kept longer from a respiratory perspective, I certainly do not have any objections.
[2019-12-05 08:18] VITALS: BP 130/74
[2019-12-05] MEDS: DOCUSATE SODIUM 100 MG CAP PO SCH (08:30)
[2019-12-05] MEDS: lisinopriL 40 MG TAB PO SCH (08:30)
[2019-12-05] MEDS: predniSONE 20 MG TAB PO SCH (08:30)
[2019-12-05] MEDS: ATORVASTATIN 20 MG TAB PO SCH (08:30)
[2019-12-05] MEDS: ASPIRIN 81 MG ENTERIC TAB PO SCH (08:30)
[2019-12-05] MEDS: PANTOPRAZOLE 40MG TAB (PROTONIX) PO SCH (08:30)
[2019-12-05] MEDS: METOPROLOL SUCC (TopROL XL) 100MG *XL* TAB PO SCH (08:30)
[2019-12-05] MEDS ORDERED: [UNRECOGNIZED DRUG - CODE] PO (09:17)
[2019-12-05] MEDS ORDERED: LEVA1TAB2 PO (09:17)
[2019-12-05] MEDS ORDERED: PRED10TA2 PO (09:17)
[2019-12-05] MEDS ORDERED: METO1TAB33 PO (09:17)
[2019-12-05] MEDS ORDERED: XARE20TA PO (09:17)
[2019-12-05 12:44] VITALS: BP 130/74
--- NOTE | 2019-12-05 23:17 | DSES ---
DATE OF ADMISSION: 12/01/2019 DATE OF DISCHARGE: 12/05/2019 PRINCIPAL DIAGNOSIS: New onset atrial fibrillation with rapid ventricular response. SECONDARY DIAGNOSES: 1. Exacerbation of chronic obstructive pulmonary disease (COPD) secondary to bronchitis. 2. Coronary artery disease. 3. Hypertensive heart disease. 4. Acute kidney injury. PRIMARY CARE PROVIDER: Dr. Mike Dsouza, [place], [place]. HISTORY: Nilton Martinez is a 69-year-old who was admitted to the hospitalist service with new onset atrial fibrillation. Details in the history and physical on admission. HOSPITAL COURSE: The patient was admitted to a medical bed rapid ventricular response. He was started on beta maxi therapy, Toprol XL 100 mg daily, which he tolerated well, anticoagulated with Xarelto 20 mg daily. He also was given diltiazem 30 mg every 6 hours for rate control and with these measures, his heart rate came under good control, and he has not had tachycardia for the last 48 hours. He is tolerating anticoagulation without epistaxis, rectal bleeding, urinary bleeding. Exacerbation of COPD secondary to presumed bronchitis. He was treated empirically with Levaquin and oral steroids, and he responded well to this. His chest x-ray suggested bronchitis. There was no infiltrate. He has underlying COPD and has bronchodilator that he uses as an outpatient. Coronary artery disease. He has stable coronary artery disease with no angina. He was on atorvastatin 20 mg daily, which was continued during hospitalization. He also took aspirin 81 mg daily (consideration could be given to discontinuing this; recent randomized controlled trials showed no benefit of aspirin therapy in conjunction with direct oral anticoagulant in patients with stable coronary disease; I will defer this decision to Dr. Dsouza and Dr. Stoddard). SIGNIFICANT LABS: Chest x-ray is summarized above, peribronchial thickening. Respiratory panel showed Human Rhinovirus/Enterovirus. Sputum just shows some yeast, probably from his inhaled steroid. Blood cultures were negative. Echocardiogram showed left atrial size of 40 mm, ejection fraction 65%. No significant valvular disease. Mild pulmonary hypertension noted. Flu screen was negative "rapid," urinary screen for Streptococcus pneumoniae (strep pneumo) and Legionella is still pending on his 4th day of hospitalization and on the day which is also his day of discharge. White count today is 17.9 on steroids, hemoglobin 13.8, platelets 284. Sodium 140, potassium 3.6, BUN 22, creatinine 0.9, glucose 122. DISPOSITION: The patient is discharged home in improved and stable condition. He will followup with his primary care provider in a week, followup with Dr. Stoddard per his office. Activity as tolerated. Diet will be no added salt. His medications on discharge will continue to be: - albuterol inhaler two puffs every 4 hours as needed - atorvastatin 20 mg daily - TUMS - lisinopril 40 mg daily - Daliresp 500 mcg inhaled daily - Advair 250/50 one inhalation daily - Spiriva Respimat two inhalations daily - tizanidine 4 mg every 4 hours as needed - His diltiazem will be changed to diltiazem XR 120 mg daily. - metoprolol succinate has been increased to 100 mg daily - He is on Levaquin 500 mg daily for 3 more days. - He is on prednisone 20 mg daily for 5 days then discontinue (apparently the EMR will not allow us to prescribe 20 mg tablets, so he will be on 10 mg twice a day for 5 days to satisfy the restrictions of the EMR. - Xarelto 20 mg daily (decision concerning continuing aspirin 81 mg daily deferred to his stacker attendant and outpatient provider). Prescriptions were sent to his pharmacy. Appropriate discharge instructions were given. Patient is a nonsmoker and support was given to encourage that behavior. Per Dr. Ny, please send a copy to Dr. Mike Dsouza in [place], [place].
[2019-12-06 00:06] LABS: BODY FLUID CULTURE Not indicated. (.); LEGIONELLA ANTIGEN URINE Negative (Negative); ORGANISM ID Not indicated. (.); SPECIMEN SOURCE Urine (.); URINE STREP PNEUMONIAE ANTIGEN Negative (Negative)
== END 2019-12-05 13:05 | disposition home or self-care (01) | DRG 140 ==
LOC: EDBD 20:08 → M ED 20:08 → M ED INP 22:39 → ENRESERVTM 23:46 → ENRESERVDT 23:46 → M PCU 12-02 00:56
PROVIDERS: ADMIT Internal Medicine; ATTEND Family Medicine
DX: J44.0 Chronic obstructive pulmonary disease with (acute) lower respiratory infection (principal); N17.9 Acute kidney failure, unspecified; I48.91 Unspecified atrial fibrillation; I11.9 Hypertensive heart disease without heart failure; I25.10 Atherosclerotic heart disease of native coronary artery without angina pectoris; J20.9 Acute bronchitis, unspecified; E87.6 Hypokalemia; Z87.891 Personal history of nicotine dependence; Z79.899 Other long term (current) drug therapy; B97.89 Other viral agents as the cause of diseases classified elsewhere

== ENCOUNTER 2020-01-26 18:28 | Inpatient (IN) | payer BC, OTHER ==
[~2020-01-26] VITALS: Ht 170.2 cm; Wt 78.2 kg
[~2020-01-26 18:28] MED LIST: ADV250INH INH; ATOR1TAB21 PO; DALI1TAB2 PO; LEVA1TAB2 PO; LISI40TA PO; METO1TAB33 PO; METO1TAB7 PO; MUCI1CAP PO; PRED10TA2 PO; PROAAER10 INH; SPIR12.9 INH; TIZA4TAB4 PO; TUMSCHW16 PO; XARE20TA PO; [UNRECOGNIZED DRUG - CODE] MT; [UNRECOGNIZED DRUG - CODE] PO
[2020-01-26 18:54] LABS: BASO % 0.6 % (0.0-1.0); EOS # 0.1 10^3/uL (0.0-0.5); EOS % 2.1 % (0.0-3.0); HEMATOCRIT 45.8 % (42.0-52.0); HEMOGLOBIN 15.6 g/dl (13.5-17.5); LYMPH # 1.8 10^3/uL (1.5-5.0); LYMPH % 28.1 % (24.0-44.0); MEAN CORPUSCULAR HEMOGLOBIN 29.3 pg (27.0-33.0); MEAN CORPUSCULAR HGB CONC 34.1 g/dl (32.0-36.5); MEAN CORPUSCULAR VOLUME 85.9 fl (80.0-96.0); MONO # 0.6 10^3/uL (0.0-0.8); MONO % 9.5 % (0.0-5.0); NEUTROPHILS # 3.8 10^3/uL (1.5-8.5); NEUTROPHILS % 59.2 % (36.0-66.0); PLATELET COUNT, AUTOMATED 219 10^3/uL (150-450); RED BLOOD COUNT 5.33 10^6/uL (4.30-6.10); WHITE BLOOD COUNT 6.3 10^3/uL (4.0-10.0)
[2020-01-26 19:04] LABS: INR 1.09; PROTHROMBIN TIME 13.8 SECONDS (11.8-14.0)
[2020-01-26 19:38] LABS: ALBUMIN 4.2 GM/DL (3.2-5.2); ALT/SGPT 26 U/L (12-78); BILIRUBIN,DIRECT 0.2 MG/DL (0.0-0.2); BILIRUBIN,TOTAL 0.5 MG/DL (0.2-1.0); BLOOD UREA NITROGEN 12 MG/DL (7-18); CALCIUM LEVEL 9.1 MG/DL (8.8-10.2); CARBON DIOXIDE LEVEL 23 MEQ/L (21-32); CHLORIDE LEVEL 108 MEQ/L (98-107); CK-MB VALUE MASS 1.5 NG/ML (<3.6); CPK CREATINE PHOSPHOKINASE 105 U/L (39-308); GLOMERULAR FILTRATION RATE > 60.0 (>42); GLUCOSE, FASTING 102 MG/DL (70-100); LIPASE 169 U/L (73-393); MB/CK RELATIVE INDEX 1.43 (< OR =4); NT-PRO BNP 1145 PG/ML (<125); SODIUM LEVEL 139 MEQ/L (136-145); THYROID STIMULATING HORMONE 0.064 uIU/ML (0.358-3.740); TOTAL PROTEIN 7.2 GM/DL (6.4-8.2); TROPONIN I < 0.02 NG/ML (< 0.10)
[2020-01-26] MEDS ORDERED: IPRATROPIUM 0.5MG/ALBUTEROL 2.5MG INH SOL UD 3ML (DUONEB)(J7620) NEB ONE (19:45)
[2020-01-26] MEDS ORDERED: methylPREDNISolone INJ 125 MG/2 ML VIAL (J2930) As Ordered ONE (19:50)
--- NOTE | 2020-01-26 19:53 | REP ---
CHEST, SINGLE VIEW: There is no evidence of acute infiltrate. No pleural effusion is seen. The heart is normal in size. The mediastinal silhouette is unremarkable. The visualized osseous structures are intact. IMPRESSION: No acute pulmonary disease. Electronically Signed by Stefan Santacruz MD 01/31/2020 03:09 P
[2020-01-26] MEDS ORDERED: methylPREDNISolone INJ 125 MG/2 ML VIAL (J2930) IV ONE (20:00)
[2020-01-26] MEDS ORDERED: LEVALBUTEROL 1.25 MG/0.5 ML CONCENTRATE NEB NEB ONE (20:00)
[2020-01-26 20:05] LABS: INFLUENZA A AMPLIFICATION NEGATIVE (NEGATIVE); INFLUENZA B AMPLIFICATION POSITIVE (NEGATIVE)
[2020-01-26] MEDS: DOCUSATE SODIUM 100 MG CAP PO SCH (21:00)
[2020-01-26] MEDS ORDERED: OSELTAMIVIR PHOSPHATE 75 MG CAP (TAMIFLU) PO ONE (21:15)
--- NOTE | 2020-01-26 21:25 | ECGEPIP ---
[facility] - ED Test Date: 2020-01-26 Pat Name: DAVID DEUTSCH Department: Room: - Gender: Male Translator And Interpreter: ROHINI : 1950 Requested By: Shereen Germain Order Number: [id number] Reading MD: Hilario Juarez Measurements Intervals [place] Rate: 127 P: [place]: 0 QRS: -67 QRSD: 114 T: 92 QT: 308 QTc: 449 Interpretive Statements ATRIAL FIBRILLATION WITH RAPID VENTRICULAR RESPONSE LEFT ANTERIOR FASCICULAR BLOCK POSSIBLE ANTERIOR MYOCARDIAL INFARCTION, PROBABLY OLD SIMILAR TO 12/03/19 Electronically Signed on 01-26-2020 21:25:36 EST by Hilario Juarez
[2020-01-26] MEDS ORDERED: DILT1CAP10 PO (21:28)
[2020-01-26] MEDS ORDERED: XARE20TA PO (21:28)
[2020-01-26] MEDS ORDERED: METO1TAB33 PO (21:28)
[2020-01-26] MEDS ORDERED: IPRA0.00 INH (21:28)
[2020-01-26] MEDS ORDERED: MAALOX 30 ML SUSP *UDC PO PRN (21:30)
[2020-01-26] MEDS ORDERED: MOM 30ML SUSPENSION UDC PO PRN (21:30)
[2020-01-26] MEDS ORDERED: LEVALBUTEROL 1.25 MG/0.5 ML CONCENTRATE NEB NEB PRN (21:30)
[2020-01-26] MEDS ORDERED: SODIUM CHLORIDE 0.9% 1000ML IV STA (21:30)
[2020-01-26] MEDS ORDERED: ACETAMINOPHEN TAB 650MG DOSE (2X325MG) PO PRN (21:30)
[2020-01-26 21:50] LABS: MAGNESIUM LEVEL 1.8 MG/DL (1.8-2.4)
[2020-01-26] MEDS ORDERED: diltiaZEM 125 MG in NS 100 ML IV SCH (23:00)
[2020-01-26] MEDS ORDERED: diltiaZEM **CD** 180 MG CAP PO ONE (23:15)
--- NOTE | 2020-01-26 23:18 | HPEPDOC ---
[facility] Medical History & Physical Date of Admission Jan 26, 2020 Date of Service: Jan 26, 2020 Attending Physician: FREDRICK OLSON MD History and Physical TIME OF SERVICE: 9:45 PM CHIEF COMPLAINT: Cough HISTORY OF PRESENT ILLNESS: This is a 69-year-old male presents with complaints of cough with blood since about 6 AM. He thinks he's had more than 6 episodes where his coughed up blood. He is unable to quantify the exact amount of blood, but there is a moderate amount of blood in the garbage can in the examination room. He is also having mid chest pain is made worse by coughing, shortness of breath when he exerts himself. He has been so short of breath. He is unable to speak on the phone. He denies traveling recently or having any sick contacts. REVIEW OF SYSTEMS: 12 point review of systems negative except as listed in HPI PAST MEDICAL/ SURGICAL HISTORY: Atrial fibrillation on Xarelto COPD CAD Chronic Hypertension SOCIAL HISTORY: He quit smoking ALLERGIES: Please see below. HOME MEDICATIONS: Please see below. Vital Signs Date Time Temp Pulse Resp B/P (MAP) Pulse Ox O2 Delivery O2 Flow Rate FiO2 01/26/20 18:29 96.9 157 26 139/102 (114) 99 Room Air PHYSICAL EXAMINATION: GEN: well nourished / well developed/ NAD INTEGUMENT: He doesn't have facial plethora HEENT:NCAT / lips are not cyanotic / he doesn't have pursed lip breathing /mucus membranes moist and pink / sclera anicteric CVS: Heart rate irregularly irregular and rapid/radial pulses are difficult to palpate/ no lower extremity edema LUNGS: He is not not able to speak full sentences without stopping to take a breath / he has expiratory wheezing ABDOMEN: soft & not tender with palpation MSK/EXTREMITIES: range of motion intact in all 4 extremities NEURO: CN 2-12 are grossly intact PSYCH: alert and oriented to person place and time/ able to understand and follow all commands LABORATORY DATA: Prothrombin Time 13.8, Prothromb Time International Ratio 1.09, Anion Gap 8, Glomerular Filtration Rate > 60.0, Lactic Acid Level 1.4, Calcium Level 9.1, Magnesium Level 1.8, Total Bilirubin 0.5, Direct Bilirubin 0.2, Aspartate Amino Transf (AST/SGOT) 17, Alanine Aminotransferase (ALT/SGPT) 26, Alkaline Phosphatase 149H, Total Creatine Kinase 105, Creatine Kinase MB 1.5, Creatine Kinase MB Relative Index 1.43, Troponin I < 0.02, HZ-Nfx-F-Type Natriuretic Peptide 1145H, Total Protein 7.2, Albumin 4.2, Albumin/Globulin Ratio 1.40, Lipase 169, Thyroid Stimulating Hormone (TSH) 0.064L 01/26/20 19:29: Influenza Type A (RT-PCR) NEGATIVE, Influenza Type B (RT-PCR) POSITIVEH IMAGING: Chest x-ray " IMPRESSION: No acute pulmonary disease." MICROBIOLOGY: Please see below. ASSESSMENT: Mr. Martinez is a 69-year-old with a past history of atrial fibrillation, COPD, CAD, and HTN who is admitted for management of acute COPD secondary to influenza B and A. fib with RVR. PLAN: 1 Acute COPD 2/2 Influenza B Trigger may be a viral infection Plan: admit to PCU / supplemental O2 / continuous pulse oximetry / aspiration precautions / f/u full respiratory panel/ Dunebs Q6H, levalbuterol Q1HPRN, Tamiflu 75mg BID, Prednisone + PPI / Tessalon Pearls / continue roflumilast / refer to [facility] for repeat PFTs and Pulmonary Rehab when ready for d/c 2. Rapid Atrial Fibrillation likely 2/2 acute COPD & neb tx His rate proved after received several Cardizem pushes and his by mouth dose of Cardizem and metoprolol last night Plan: telemetry / follow-up serial troponins, magnesium / continue with Cardizem and metoprolol / hold Xarelto pending repeat hemoglobin/ the patient reports that he has palpitations at home, the daytime team may consider calling Dr. Stoddard to discuss adjusting the dose of his medications 3. Hemoptysis According to the patient has been having hemoptysis since he started Xarelto but it's been worse over the last few days. This is likely due to the URI. Plan: monitor for bleeding / follow-up for repeat hemoglobin prior to resuming Xarelto 4. SIRS likely reactive 2/2 acute COPD and rapid A fib SIRS criterial include HR >90 / RR. 20 He does not appear toxic and we don't have a source of infection. Lactic acid was wnl Plan: monitor vitals 5. Chronic HTN - Plan: Lisinopril DVT PROPHYLAXIS: Resume Xarelto in the morning pending repeat hemoglobin DISPOSITION: home after more than 2 midnight's stay Laboratory Data Microbiology Microbiology 01/26/20 Respiratory Virus Panel (PCR) (LAURI), Received Pending 01/26/20 Blood Culture, Received Pending 01/26/20 Blood Culture, Received Pending Home Medications Scheduled Atorvastatin Calcium (Atorvastatin Calcium) 20 Mg Tablet, 20 MG PO DAILY Diltiazem HCl (Diltiazem 24Hr ER) 360 Mg Cap.sa.24h, 360 MG PO DAILY Lisinopril (Lisinopril) 40 Mg Tablet, 40 MG PO DAILY Metoprolol Succinate (Metoprolol Succinate) 100 Mg Tab.er.24h, 100 MG PO DAILY Rivaroxaban (Xarelto) 20 Mg Tablet, 20 MG PO DAILY Roflumilast (Daliresp) 500 Mcg Tablet, 500 MCG PO DAILY Salmeterol/Fluticasone (Advair 250-50 Diskus) 1 Each Blst.w.dev, 1 PUFF INH BID Tiotropium Zimmerman (Spiriva Respimat) 4 Gm Mist.inhal, 2 INHALATION INH DAILY Scheduled PRN Albuterol Sulfate (Proair Hfa) 8.5 Gm Hfa.aer.ad, 2 PUFF INH Q4H PRN for SHORTNESS OF BREATH Ipratropium/Albuterol Sulfate (Iprat-Albut 0.5-3(2.5) mg/3 ml) 3 Ml Ampul.neb, 3 ML INH Q4H PRN for SHORTNESS OF BREATH Phenylephrine/Dm/Acetaminop/GG (Mucinex Fast-Max Xjtv-Xwf-Twor) 1 Each Capsule, 2 CAP PO Q4H PRN for COLD/FLU/SORE THROAT Allergies Coded Allergies: No Known Drug Allergies (Verified Allergy, Unknown, 12/01/19) A-FIB/CHADSVASC A-FIB History Current/History of A-Fib/PAF?: Yes Current PO Anticoag Therapy: No Treatment Reason Anticoagulant not given: Current bleeding FREDRICK OLSON MD Jan 26, 2020 23:18
[2020-01-26] MEDS ORDERED: METOPROLOL SUCC (TopROL XL) 100MG *XL* TAB PO ONE (23:30)
[2020-01-27] MEDS: IPRATROPIUM 0.5MG/ALBUTEROL 2.5MG INH SOL UD 3ML (DUONEB)(J7620) NEB SCH ×4 (02:30→18:39)
[2020-01-27] MEDS ORDERED: BENZONATATE 100 MG CAP PO PRN (06:00)
[2020-01-27 06:30] LABS: HEMATOCRIT 43.6 % (42.0-52.0); MEAN CORPUSCULAR HEMOGLOBIN 29.5 pg (27.0-33.0); MEAN CORPUSCULAR HGB CONC 34.4 g/dl (32.0-36.5); MEAN CORPUSCULAR VOLUME 85.7 fl (80.0-96.0); PLATELET COUNT, AUTOMATED 226 10^3/uL (150-450); RED BLOOD COUNT 5.09 10^6/uL (4.30-6.10); WHITE BLOOD COUNT 3.3 10^3/uL (4.0-10.0)
[2020-01-27 06:57] LABS: BLOOD UREA NITROGEN 12 MG/DL (7-18); CALCIUM LEVEL 9.2 MG/DL (8.8-10.2); CARBON DIOXIDE LEVEL 23 MEQ/L (21-32); CHLORIDE LEVEL 107 MEQ/L (98-107); CREATININE FOR GFR 0.97 MG/DL (0.70-1.30); GLOMERULAR FILTRATION RATE > 60.0 (>42); GLUCOSE, FASTING 175 MG/DL (70-100); MAGNESIUM LEVEL 1.9 MG/DL (1.8-2.4); POTASSIUM SERUM 4.2 MEQ/L (3.5-5.1); SODIUM LEVEL 136 MEQ/L (136-145); TROPONIN I < 0.02 NG/ML (< 0.10)
[2020-01-27] MEDS ORDERED: PANTOPRAZOLE 40MG TAB (PROTONIX) PO SCH (09:00)
[2020-01-27] MEDS ORDERED: predniSONE 20 MG TAB PO SCH (09:00)
[2020-01-27] MEDS: lisinopriL 40 MG TAB PO SCH (09:13)
[2020-01-27] MEDS: ATORVASTATIN 20 MG TAB PO SCH (09:13)
[2020-01-27] MEDS: DOCUSATE SODIUM 100 MG CAP PO SCH ×2 (09:13→20:25)
[2020-01-27] MEDS: OSELTAMIVIR PHOSPHATE 75 MG CAP (TAMIFLU) PO SCH ×2 (09:13→21:01)
[2020-01-27] MEDS: METOPROLOL SUCC (TopROL XL) 100MG *XL* TAB PO SCH (09:14)
[2020-01-27] MEDS: diltiaZEM **CD** 180 MG CAP PO SCH (10:08)
[2020-01-27] MEDS ORDERED: METOPROLOL TART 25 MG TABLET PO ONE (11:00)
[2020-01-27 14:50] VITALS: BP 144/80
[2020-01-27 15:17] VITALS: O2SAT 99
[2020-01-27] MEDS: RIVAROXABAN 20 MG TAB (XARELTO) PO SCH (15:50)
[2020-01-27 21:00] VITALS: O2SAT 99
[2020-01-27] MEDS ORDERED: VANCOMYCIN HCL 1,000 MG, VIAL MATE ADAPTER 1 EACH in D5W 250 ML IV ONE (21:00)
[2020-01-27 22:00] VITALS: BP 112/62
[2020-01-27] MEDS ORDERED: VANCOMYCIN HCL 1,000 MG, VIAL MATE ADAPTER 1 EACH in D5W 250 ML IV SCH (22:00)
[2020-01-28] MEDS: IPRATROPIUM 0.5MG/ALBUTEROL 2.5MG INH SOL UD 3ML (DUONEB)(J7620) NEB SCH ×2 (01:29→07:46)
[2020-01-28] MEDS ORDERED: ALBUTEROL 90 MCG/ACT 8GM HFA INHALER INH PRN (01:30)
[2020-01-28 02:00] VITALS: BP 111/62
[2020-01-28 06:00] VITALS: BP 125/71
[2020-01-28 08:00] VITALS: O2SAT 97
--- NOTE | 2020-01-28 08:22 | IPN ---
DATE: 01/27/2020 Patient still complains of occasional hemoptysis and hoarse voice that he has had for one year. His conflict resolution professional has referred him to Ear, Nose and Throat surgeon which he has an appointment to as outpatient. This morning, breathing is improved, but still persistent. He has no fever or chills. Has slight hemoptysis when he tries to cough. Hemoglobin and hematocrit remains stable. 98% on room air. Rate is still 107, irregular at the bedside, given one dose of metoprolol which the patient refused this morning. No headaches, no changes in vision. Temperature 97.9, pulse 91 to 107, respiratory rate 18, blood pressure 162/86, 98% on room air. GENERAL: Patient appears disheveled. Appears older than his stated age. Edentulous. No use of accessory respiratory muscles. No cyanosis. Despite hoarseness of the voice, there is no stridor on exam. Uvula is unremarkable. No tonsil exudates. No pharyngeal erythema. No cervical lymphadenopathy. LUNGS: Diminished with faint expiratory wheezing. No cyanosis. ABDOMEN: Soft, nontender, nondistended. Positive bowel sounds. HEART: Irregularly irregular and tachycardic. EXTREMITIES: No cyanosis or clubbing. Trace edema. LABORATORY DATA: White count 3.3, hemoglobin 15, hematocrit 43, platelet count 226. Sodium 136, potassium 4.2, chloride 107, bicarbonate 23, BUN 12, creatinine 0.97, glucose 175, magnesium 1.9, troponin less than 0.02. BNP 1145. Respiratory panel 01/26/2020 is negative. ASSESSMENT AND PLAN: This is a 69-year-old male with positive influenza B, chronic obstructive pulmonary disease (COPD), A-Fib, on chronic Xarelto, coronary artery disease (CAD) and chronic hypertension. Previously smoked 2 packs a day for over 50 years. 100 pack year history of smoking presents with A-Fib and rapid ventricular response (RVR), COPD exacerbation secondary to influenza B. IMPRESSION: 1. A-Fib with RVR, resumed on his home dose of metoprolol and Cardizem, additional dose 25 or better, rate control and blood pressure control, which the patient has refused. Patient is monitored on telemetry and continued on his home medications. Appears to be stable and has improved significantly. 2. Acute COPD exacerbation secondary to acute influenza B. Currently on Solu-Medrol nebulizer treatment, Tamiflu and supplemental oxygen to keep oxygen sat 80 to 92%. 3. Influenza B. Currently on Tamiflu 75 twice a day. 4. Hypertension. Resumed on his home dose of metoprolol and diltiazem. Holding parameters on his lisinopril.
[2020-01-28] MEDS: RIVAROXABAN 20 MG TAB (XARELTO) PO SCH (08:30)
[2020-01-28 08:31] VITALS: BP 124/70
[2020-01-28] MEDS: METOPROLOL SUCC (TopROL XL) 100MG *XL* TAB PO SCH (08:31)
[2020-01-28] MEDS: OSELTAMIVIR PHOSPHATE 75 MG CAP (TAMIFLU) PO SCH (08:31)
[2020-01-28] MEDS: diltiaZEM **CD** 180 MG CAP PO SCH (08:32)
[2020-01-28] MEDS: DOCUSATE SODIUM 100 MG CAP PO SCH (08:32)
[2020-01-28] MEDS: lisinopriL 40 MG TAB PO SCH (08:32)
[2020-01-28] MEDS: ATORVASTATIN 20 MG TAB PO SCH (08:32)
[2020-01-28] MEDS ORDERED: DALIRESP PO SCH (09:00)
[2020-01-28 10:00] VITALS: BP 132/88
[2020-01-28] MEDS ORDERED: OSEL75CA PO (10:29)
[2020-01-28] MEDS ORDERED: MAG SULF 1GM/100ML (MAG RUN) 1 GM in IV 1 EA IV ONE (11:00)
--- NOTE | 2020-01-29 21:22 | DSES ---
DATE OF ADMISSION: 01/26/2020 DATE OF DISCHARGE: 01/28/2020 The patient is leaving against medical advice, discharged against medical advice. DISCHARGE DIAGNOSES: 1. Gram-positive cocci in one of two sets of blood cultures. 2. Atrial fibrillation with rapid ventricular response. 3. Influenza. 4. Hypertension. 5. Hemoptysis with hemoglobin of 15, hematocrit of 45. DISCHARGE MEDICATIONS: - Tamiflu 75 mg twice a day - ProAir HFA two puffs every 4 hours - atorvastatin 20 mg daily - diltiazem 360 mg daily - ipratropium albuterol 3 mL every 4 hours - Lisinopril 40 mg daily - metoprolol 100 mg daily - Mucinex two capsules every 4 hours as needed - Xarelto 20 mg daily - Daliresp 500 mcg daily - Leandro 250/50 one puff twice a day - Spiriva two inhalations daily DISCHARGE INSTRUCTIONS: Due to gram-positive cocci found in one of two sets of blood cultures on 01/26/2020, patient was encouraged to continue to receive intravenous vancomycin until the final result is available. However, the patient has decided to leave against medical advice and at risk for bacteremia, septic emboli. Floor nurse had been instructed to contact the patient with final results and to encourage him to come back to the emergency room if positive. HISTORY OF PRESENT ILLNESS: This is a 69-year-old male with a history of chronic obstructive pulmonary disease (COPD), atrial fibrillation on chronic Xarelto, coronary artery disease, hypertension, with [id number] history of smoking, presents to the emergency room with shortness of breath, found to have influenza B and was given Tamiflu 75 mg twice a day and was treated for chronic obstructive pulmonary disease (COPD) exacerbation. The patient was not wheezing and prednisone was discontinued. His atrial fibrillation with rapid ventricular response responded to his home dose of metoprolol and Cardizem with rate of 120, subsiding to a rate of 60 to 90. Overnight, the patient was kept on nebulizer treatments. Blood pressure was well maintained, above MAP of 80 with his home medications. One of two sets of blood cultures grew out Gram-positive cocci. He did receive one dose of vancomycin. He was afebrile. White decreased from 6.3 to 3.3. The patient was adamant about leaving against medical advice. This was discussed with the patient's daughter at the bedside, as well as the patient. They will be watching him at home and we will call them regarding the blood culture results. PHYSICAL EXAMINATION: On discharge: VITAL SIGNS: Temperature 97.9, pulse 81, respiratory rate 15, blood pressure 132/80, 95% on room air. GENERAL: He appears disheveled, older than his stated age, edentulous and unkempt. LUNGS: Diminished but clear to auscultation. No wheezing or rales. HEART: S1, S2 irregularly irregular but rate controlled. ABDOMEN: Soft, nontender, nondistended. EXTREMITIES: No cyanosis, clubbing or any pitting edema. LABORATORY DATA: White count 3.3, hemoglobin 15, hematocrit 43, platelet count 226. Sodium 135, potassium 4.2, chloride 107, bicarbonate 23, BUN 12, creatinine 0.97, glucose 175, lactic acid 1.4, magnesium 1.9, troponin less than 0.02. 01/26/2020 one of two sets of blood cultures showed gram-positive cocci in pairs and clusters. Respiratory panel on 01/26/2020 negative. Two sets of blood cultures on 01/27/2020 are pending. Chest x-ray on 01/26/2020 showed no acute cardiopulmonary disease.
== END 2020-01-28 11:10 | disposition left against medical advice (07) | DRG 140 ==
LOC: M ED 18:28 → M ED INP 21:30 → ENRESERVDT 01-27 13:35 → ENRESERVTM 01-27 13:35 → ENRESERVDT 01-27 13:42 → ENRESERVTM 01-27 13:42 → M MSPAV 01-27 14:44
PROVIDERS: ADMIT Internal Medicine; ATTEND General Practice
DX: J44.1 Chronic obstructive pulmonary disease with (acute) exacerbation (principal); I48.91 Unspecified atrial fibrillation; I10 Essential (primary) hypertension; J10.1 Influenza due to other identified influenza virus with other respiratory manifestations; R04.2 Hemoptysis; I25.10 Atherosclerotic heart disease of native coronary artery without angina pectoris; Z66 Do not resuscitate; Z87.891 Personal history of nicotine dependence; Z79.01 Long term (current) use of anticoagulants; Z79.899 Other long term (current) drug therapy

== ENCOUNTER → 2020-03-09 | Outpatient (REF) | payer OTHER ==
[~2020-03-09] MED LIST changes: +DILT1CAP10 PO; +IPRA0.00 INH; +OSEL75CA PO
[2020-03-09 14:28] LABS: BASO # 0.1 10^3/uL (0.0-0.2); BASO % 0.6 % (0.0-1.0); EOS # 0.1 10^3/uL (0.0-0.5); EOS % 1.7 % (0.0-3.0); HEMATOCRIT 43.2 % (42.0-52.0); HEMOGLOBIN 14.2 g/dl (13.5-17.5); LYMPH # 2.4 10^3/uL (1.5-5.0); LYMPH % 31.1 % (24.0-44.0); MEAN CORPUSCULAR HEMOGLOBIN 29.2 pg (27.0-33.0); MEAN CORPUSCULAR HGB CONC 32.9 g/dl (32.0-36.5); MEAN CORPUSCULAR VOLUME 88.7 fl (80.0-96.0); MONO # 0.6 10^3/uL (0.0-0.8); MONO % 7.4 % (0.0-5.0); NEUTROPHILS # 4.6 10^3/uL (1.5-8.5); NEUTROPHILS % 58.9 % (36.0-66.0); PLATELET COUNT, AUTOMATED 310 10^3/uL (150-450); RED BLOOD COUNT 4.87 10^6/uL (4.30-6.10); WHITE BLOOD COUNT 7.8 10^3/uL (4.0-10.0)
[2020-03-09 14:38] LABS: ALBUMIN 3.9 GM/DL (3.2-5.2); ALT/SGPT 17 U/L (12-78); BILIRUBIN,TOTAL 0.6 MG/DL (0.2-1.0); BLOOD UREA NITROGEN 9 MG/DL (7-18); C REACTIVE PROTEIN QUANTITATIV 1.74 MG/DL (0.00-0.30); CALCIUM LEVEL 9.5 MG/DL (8.8-10.2); CARBON DIOXIDE LEVEL 30 MEQ/L (21-32); CHLORIDE LEVEL 109 MEQ/L (98-107); CPK CREATINE PHOSPHOKINASE 75 U/L (39-308); CREATININE FOR GFR 0.88 MG/DL (0.70-1.30); GLOMERULAR FILTRATION RATE > 60.0 (>42); GLUCOSE, FASTING 95 MG/DL (70-100); IRON (FE) 102 UG/DL (65-175); LIPASE 75 U/L (73-393); PERCENT SATURATION 32.3 % (19.7-50.0); SODIUM LEVEL 142 MEQ/L (136-145); TOTAL IRON BINDING CAPACITY 316 UG/DL (250-450); TOTAL PROTEIN 6.9 GM/DL (6.4-8.2)
[2020-03-09 14:42] LABS: APPEARANCE, URINE CLEAR (CLEAR); BACTERIA, URINE AUTO NEGATIVE (NEGATIVE); BILIRUBIN, URINE AUTO NEGATIVE (NEGATIVE); BLOOD, URINE BLOOD NEGATIVE (NEGATIVE); COLOR, URINE YELLOW (YELLOW); GLUCOSE, URINE (UA) AUTO NEGATIVE (NEGATIVE); KETONE, URINE AUTO NEGATIVE (NEGATIVE); LEUKOCYTE ESTERASE, URINE AUTO NEGATIVE (NEGATIVE); MUCUS, URINE SMALL (NEGATIVE); NITRITE, URINE AUTO NEGATIVE (NEGATIVE); PROTEIN, URINE AUTO NEGATIVE (NEGATIVE); RBC, URINE AUTO 0 /HPF (0-3); SPECIFIC GRAVITY URINE AUTO 1.018 (1.002-1.035); SQUAMOUS EPITHELIAL CELL UR AU 0 /HPF (0-6); UROBILINOGEN, URINE AUTO 0.2 mg/dL (0.0-2.0); WBC, URINE AUTO 1 /HPF (0-3)
[2020-03-09 14:54] LABS: ERYTHROCYTE SEDIMENTATION RATE 22 mm/hr (0-20)
== END ==
LOC: M LABDRAW1 14:10
PROVIDERS: ATTEND Neuromusculoskeletal Medicine & OMM
DX: I10 Essential (primary) hypertension (principal); D50.0 Iron deficiency anemia secondary to blood loss (chronic); R10.9 Unspecified abdominal pain

== ENCOUNTER → 2020-03-19 | Outpatient (CLI) | payer OTHER ==
[2020-03-19 18:01] LABS: ALBUMIN 3.8 GM/DL (3.2-5.2); BILIRUBIN,DIRECT 0.2 MG/DL (0.0-0.2); BILIRUBIN,TOTAL 0.6 MG/DL (0.2-1.0); CHOLESTEROL RISK RATIO 3.194 (<5); TOTAL PROTEIN 6.5 GM/DL (6.4-8.2)
== END ==
LOC: M WUC 14:56
PROVIDERS: ATTEND Internal Medicine Interventional Cardiology
DX: I25.10 Atherosclerotic heart disease of native coronary artery without angina pectoris (principal)

== ENCOUNTER → 2020-04-19 | Outpatient (CLI) | payer BC, OTHER ==
[~2020-04-19] MED LIST changes: +AMIO200T PO; +CEFD250S26 PO
== END ==
LOC: M ONCR 13:15
PROVIDERS: ATTEND Radiology Radiation Oncology
DX: C32.9 Malignant neoplasm of larynx, unspecified (principal)

== ENCOUNTER → 2020-05-08 | Outpatient (CLI) | payer BC, OTHER ==
--- NOTE | 2020-05-08 15:19 | REP ---
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 History of positive surgical margins. Postoperative radiation therapy. COMPARISONS: Comparison soft-tissue CT study of the neck from [facility] March 16, 2020. TECHNIQUE: 49 minutes following the intravenous injection of a 8.73 mCi dose of F-18 FDG, three-dimensional PET scintigraphy is acquired from the skull base to the proximal thighs. Triplanar noncontrast CT scanning is acquired through the same anatomic range for attenuation correction, and image registration with scan parameters optimized to minimize radiation exposure to the patient. PET scintigraphy and CT datasets were fused and displayed on a workstation with multiplanar and projection display capability. PET/CT FINDINGS: There is mildly increased uptake in the parotid and submandibular glands bilaterally. Some tonsillar pillar, and hypopharyngeal uptake is seen which can be normal variant. There is uptake in the region of the tracheostomy tube just anterior to the trachea to the left of midline which appears hypermetabolic. Maximum standard uptake value 7.12. This is of uncertain significance as there is no discernible soft tissue mass. Inflammatory stomal or peristomal uptake is a possibility. No abnormal mediastinal hypermetabolic uptake is seen. There is a normal sized lymph node in the AP window region of the mediastinum with non hypermetabolic uptake values, 1.87. There is no abnormal hypermetabolic uptake within the thorax. A gastrostomy tube is noted in the upper abdomen. No abnormal abdominal or pelvic hypermetabolic uptake is appreciated. No abnormal skeletal or pulmonary parenchymal hypermetabolic uptake is noted. IMPRESSION: Parastomal area of increased uptake without corresponding mass lesion of uncertain significance associated with the tracheostomy stoma. No other suspicious hypermetabolic uptake seen. Electronically Signed by Anirudh Rowley MD 05/09/2020 08:10 A
== END ==
LOC: M PLARAD 08:32
PROVIDERS: ATTEND Radiology Radiation Oncology
DX: C32.9 Malignant neoplasm of larynx, unspecified (principal)
CPT/HCPCS: 78815; A9552

== ENCOUNTER → 2020-05-22 | Outpatient (RCR) | payer BC, OTHER ==
--- NOTE | 2020-05-08 13:55 | RADONC ---
RADIATION ONCOLOGY SIMULATION NOTE DATE: 05/03/2020 CHART #: [id number] Mr. Martinez was taken to the CT scan for CT simulation of his head and neck field. CT was accomplished without difficulty or discomfort. Radiation treatment planning is underway and radiation treatments will begin subsequently. An immobilization device including a mask was created without difficulty or discomfort. It will be used throughout the course of treatment. I was physically present throughout the course of CT simulation.
== END ==
LOC: M ONCR 05-03 13:50
PROVIDERS: ATTEND Radiology Radiation Oncology
DX: C32.9 Malignant neoplasm of larynx, unspecified (principal)

== ENCOUNTER 2020-06-14 09:56 | Outpatient (RCR) | payer BC, OTHER ==
--- NOTE | 2020-06-05 16:35 | RADONC ---
RADIATION ONCOLOGY PROGRESS NOTE DATE: 05/28/2020 CHART NUMBER: [id number] Mr. Martinez is presently at a dose of 800 cGy to his larynx and is tolerating treatments quite well at this point with no complaints related to his radiation therapy. He is having no increased difficulty swallowing or other problems. The patient's review of systems is unchanged. He is not having any problems with his throat at this time from radiation. PHYSICAL EXAMINATION: The patient's skin is in good condition with no evidence of moist or dry desquamation. The remainder of his physical exam remains unchanged. Mr. Martinez is tolerating his treatments thus far and radiation will continue as scheduled.
--- NOTE | 2020-06-11 17:17 | RADONC ---
RADIATION ONCOLOGY PROGRESS NOTE DATE: 06/11/2020 CHART NUMBER: [id number] PROGRESS NOTE: Mr. Martinez is presently at a dose of 2000 centigrade to his larynx and is tolerating treatments quite well at this point with no complaints related to his radiation therapy. He is having no increasing discomfort or problems swallowing. He denies standard review of systems. REVIEW OF SYSTEMS: The patient's review of systems is unchanged. He is having no problems with his tracheostomy. PHYSICAL EXAMINATION: The patient's skin is in good condition with no evidence of radiation change present. There is no moist or dry desquamation. There is no significant mucositis present. The remainder of his physical exam remains unchanged. He has actually gained almost 2 pounds over the past 2 weeks. Mr. Martinez is tolerating treatments quite well and radiation will continue as scheduled. He did miss a few treatments last week secondary to machine breakdown. He was able to be treated on Thursday and Thursday to compensate.
[~2020-06-14 09:56] MED LIST changes: -AMIO200T PO; +AMIO200T3 PO
== END 2020-06-22 ==
LOC: M ONCR 09:56
PROVIDERS: ATTEND Radiology Radiation Oncology
DX: C32.9 Malignant neoplasm of larynx, unspecified (principal)

== ENCOUNTER → 2021-09-10 | Outpatient (CLI) | payer OTHER, BC ==
[~2021-09-10] MED LIST changes: -LISI40TA PO; +LISI40TA4 PO
[2021-09-10 10:04] LABS: BASO % 0.7 % (0.0-1.0); EOS # 0.1 10^3/uL (0.0-0.5); EOS % 1.4 % (0.0-3.0); HEMATOCRIT 45.6 % (42.0-52.0); LYMPH # 1.3 10^3/uL (1.5-5.0); LYMPH % 21.8 % (24.0-44.0); MEAN CORPUSCULAR HEMOGLOBIN 29.6 pg (27.0-33.0); MEAN CORPUSCULAR HGB CONC 32.9 g/dl (32.0-36.5); MEAN CORPUSCULAR VOLUME 89.9 fl (80.0-96.0); MONO # 0.5 10^3/uL (0.0-0.8); MONO % 9.3 % (2.0-8.0); NEUTROPHILS # 3.8 10^3/uL (1.5-8.5); NEUTROPHILS % 66.3 % (36.0-66.0); PLATELET COUNT, AUTOMATED 252 10^3/uL (150-450); RED BLOOD COUNT 5.07 10^6/uL (4.30-6.10); WHITE BLOOD COUNT 5.8 10^3/uL (4.0-10.0)
[2021-09-10 11:19] LABS: ALBUMIN 3.9 GM/DL (3.2-5.2); ALT/SGPT 18 U/L (12-78); BILIRUBIN,TOTAL 0.6 MG/DL (0.2-1.0); BLOOD UREA NITROGEN 12 MG/DL (7-18); CALCIUM LEVEL 8.9 MG/DL (8.8-10.2); CARBON DIOXIDE LEVEL 27 MEQ/L (21-32); CHLORIDE LEVEL 108 MEQ/L (98-107); CREATININE FOR GFR 1.18 MG/DL (0.70-1.30); FREE T4 0.84 NG/DL (0.76-1.46); GLOMERULAR FILTRATION RATE > 60.0 (>42); GLUCOSE, FASTING 104 MG/DL (70-100); POTASSIUM SERUM 4.1 MEQ/L (3.5-5.1); SODIUM LEVEL 141 MEQ/L (136-145); TOTAL 25(OH) VITAMIN D 18.3 NG/ML (30.0-100.0); TOTAL PROTEIN 7.2 GM/DL (6.4-8.2); VITAMIN B12 LEVEL 358 PG/ML (247-911)
== END ==
LOC: M WUC 08:02
PROVIDERS: ATTEND Neuromusculoskeletal Medicine & OMM
DX: I47.2 Ventricular tachycardia (principal); E03.9 Hypothyroidism, unspecified; I10 Essential (primary) hypertension; E55.9 Vitamin D deficiency, unspecified; E53.8 Deficiency of other specified B group vitamins

== ENCOUNTER → 2023-09-04 | Outpatient (CLI) | payer BC ==
[~2023-09-04] MED LIST changes: -AMIO200T3 PO; +AMIO200T49 PO; -DILT1CAP10 PO; +DILT360C8 PO; +TIZA10TA PO; -TIZA4TAB4 PO
[2023-09-04 17:19] LABS: BASO % 0.7 % (0.0-1.0); EOS # 0.1 10^3/uL (0.0-0.5); EOS % 1.1 % (0.0-3.0); HEMATOCRIT 44.7 % (42.0-52.0); HEMOGLOBIN 14.6 g/dl (13.5-17.5); LYMPH # 1.4 10^3/uL (1.5-5.0); LYMPH % 25.8 % (24.0-44.0); MEAN CORPUSCULAR HEMOGLOBIN 30.5 pg (27.0-33.0); MEAN CORPUSCULAR HGB CONC 32.7 g/dl (32.0-36.5); MEAN CORPUSCULAR VOLUME 93.5 fl (80.0-96.0); MONO # 0.5 10^3/uL (0.0-0.8); MONO % 8.9 % (2.0-8.0); NEUTROPHILS # 3.5 10^3/uL (1.5-8.5); PLATELET COUNT, AUTOMATED 235 10^3/uL (150-450); RED BLOOD COUNT 4.78 10^6/uL (4.30-6.10); WHITE BLOOD COUNT 5.5 10^3/uL (4.0-10.0)
[2023-09-04 17:44] LABS: ALBUMIN 4.2 G/DL (3.2-5.2); ALKALINE PHOSPHATASE 83 U/L (46-116); ALT/SGPT 11 U/L (7.0-40); AST/SGOT 12 U/L (<34); BILIRUBIN,TOTAL 0.7 MG/DL (0.3-1.2); BLOOD UREA NITROGEN 15 MG/DL (9-23); CALCIUM LEVEL 8.7 MG/DL (8.3-10.6); CARBON DIOXIDE LEVEL 29 MMOL/L (20-31); CHLORIDE LEVEL 107 MMOL/L (98-107); CREATININE FOR GFR 1.04 MG/DL (0.70-1.30); GLOMERULAR FILTRATION RATE > 60.0 (>42); GLUCOSE, FASTING 86 MG/DL (74-106); POTASSIUM SERUM 4.3 MMOL/L (3.5-5.1); SODIUM LEVEL 142 MMOL/L (136-145); TOTAL PROTEIN 6.9 G/DL (5.7-8.2)
== END ==
LOC: M WUC 11:37
PROVIDERS: ATTEND Otolaryngology
DX: E10.9 Type 1 diabetes mellitus without complications (principal); I10 Essential (primary) hypertension

== ENCOUNTER → 2024-08-23 | Outpatient (CLI) | payer MEDICARE, BC ==
[2024-08-23 11:18] LABS: TOTAL 25(OH) VITAMIN D 15.2 NG/ML (20.0-100.0)
[2024-08-23 11:19] LABS: THYROID STIMULATING HORMONE 53.706 uIU/ML (0.55-4.78)
[2024-08-23 11:20] LABS: ALBUMIN 4.3 G/DL (3.2-5.2); ALKALINE PHOSPHATASE 84 U/L (46-116); ALT/SGPT 12 U/L (7.0-40); AST/SGOT 8 U/L (<34); BILIRUBIN,TOTAL 0.6 MG/DL (0.3-1.2); BLOOD UREA NITROGEN 14 MG/DL (9-23); CALCIUM LEVEL 9.7 MG/DL (8.3-10.6); CARBON DIOXIDE LEVEL 26 MMOL/L (20-31); CHLORIDE LEVEL 108 MMOL/L (98-107); CREATININE FOR GFR 1.25 MG/DL (0.70-1.30); FREE T4 0.54 NG/DL (0.89-1.76); GLOMERULAR FILTRATION RATE > 60.0 (>42); GLUCOSE, FASTING 94 MG/DL (74-106); POTASSIUM SERUM 4.4 MMOL/L (3.5-5.1); SODIUM LEVEL 140 MMOL/L (136-145); TOTAL PROTEIN 7.2 G/DL (5.7-8.2); VITAMIN B12 LEVEL 277 PG/ML (211-911)
== END ==
LOC: M WUC 08:23
PROVIDERS: ATTEND Neuromusculoskeletal Medicine & OMM
DX: E55.9 Vitamin D deficiency, unspecified (principal); E53.8 Deficiency of other specified B group vitamins; E78.00 Pure hypercholesterolemia, unspecified; E03.9 Hypothyroidism, unspecified

== ENCOUNTER → 2025-08-21 | Outpatient (CLI) | payer MEDICARE, MEDICAID ==
[~2025-08-21] MED LIST changes: -ADV250INH INH; +ADVA1AER9 INH; -AMIO200T49 PO; +AMIO200T54 PO; +LISI40TA10 PO; -LISI40TA4 PO
[2025-08-21 18:46] LABS: BASO # 0.1 10^3/uL (0.0-0.2); BASO % 1.0 % (0.0-1.0); EOS # 0.2 10^3/uL (0.0-0.5); EOS % 2.5 % (0.0-3.0); LYMPH # 1.6 10^3/uL (1.5-5.0); LYMPH % 19.1 % (24.0-44.0); MONO # 0.6 10^3/uL (0.0-0.8); MONO % 6.9 % (2.0-8.0); NEUTROPHILS # 5.7 10^3/uL (1.5-8.5); NEUTROPHILS % 69.9 % (36.0-66.0); PLATELET COUNT, AUTOMATED 233 10^3/uL (150-450)
[2025-08-21 18:58] LABS: ALT/SGPT 16.0 U/L (7.0-40); AST/SGOT 16.0 U/L (<34); CALCIUM LEVEL 8.8 MG/DL (8.3-10.6); CARBON DIOXIDE LEVEL 26.0 MMOL/L (20-31); CHLORIDE LEVEL 106.0 MMOL/L (98-107); CHOLESTEROL LEVEL 341.0 MG/DL (<200); CHOLESTEROL RISK RATIO 8.97 (<5); CREATININE FOR GFR 1.13 MG/DL (0.70-1.30); GLOMERULAR FILTRATION RATE 67.8 (>42); LDL CHOLESTEROL 240.8 MG/DL (<100); NON-HDL-C 303.0 MG/DL; POTASSIUM SERUM 4.2 MMOL/L (3.5-5.1); PSA SCREENING 3.66 NG/ML (< 4.00); SODIUM LEVEL 141.0 MMOL/L (136-145); TRIGLYCERIDES LEVEL 311.0 MG/DL (<150)
[2025-08-21 19:00] LABS: TOTAL 25(OH) VITAMIN D 17.0 NG/ML (20.0-100.0); VITAMIN B12 LEVEL 757.0 PG/ML (211-911)
[2025-08-21 19:01] LABS: FREE T4 0.4 NG/DL (0.89-1.76)
[2025-08-21 19:24] LABS: ESTIMATED AVERAGE GLUCOSE 108.0 MG/DL (60-110)
== END ==
LOC: M WUC 13:19
PROVIDERS: ATTEND Neuromusculoskeletal Medicine & OMM
DX: E78.1 Pure hyperglyceridemia (principal); K52.9 Noninfective gastroenteritis and colitis, unspecified; E55.9 Vitamin D deficiency, unspecified; E53.8 Deficiency of other specified B group vitamins; Z12.5 Encounter for screening for malignant neoplasm of prostate; R73.09 Other abnormal glucose
CPT/HCPCS: 36415; 80053; 80061; 82306; 82607; 83036; 84439; 84443; 85025; G0103